=== PATIENT | male | born 1945 | race Caucasian/White ===

== ENCOUNTER 2019-08-09 11:43 | Outpatient (CLI) | payer MEDICARE ==
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
== END 2019-08-09 11:44 | disposition home or self-care (01) ==
LOC: DI.S 11:43
PROVIDERS: ATTEND Family Medicine
DX: M25.512 Pain in left shoulder (principal); Z95.810 Presence of automatic (implantable) cardiac defibrillator

== ENCOUNTER 2020-11-07 09:09 | Outpatient (CLI) | payer MEDICARE, OTHER ==
[2020-11-07 15:42] LABS: BASOPHILS # (AUTO) 0.1 10^3/uL (0.0-0.1); BASOPHILS % (AUTO) 1.1 %; EOSINOPHILS # (AUTO) 0.5 10^3/uL (0.0-0.7); EOSINOPHILS % (AUTO) 7.4 %; HGB - HEMOGLOBIN 14.7 g/dL (14.0-18.0); LYMPHOCYTES # (AUTO) 1.8 10^3/uL (1.5-3.5); MEAN CORPUSCULAR HEMOGLOBIN 31.2 pg (27.0-31.0); MEAN CORPUSCULAR HGB CONC 32.7 g/dL (32.0-36.0); MEAN CORPUSCULAR VOLUME 95.5 fL (80.0-94.0); MEAN PLATELET VOLUME 9.8 fL (7.4-11.4); MONOCYTES # (AUTO) 0.5 10^3/uL (0.0-1.0); MONOCYTES % (AUTO) 7.2 %; NEUTROPHILS # (AUTO) 3.7 10^3/uL (1.5-6.6); NEUTROPHILS % (AUTO) 57.1 %; PLT - PLATELET COUNT 247 10^3/uL (130-450); RED BLOOD COUNT 4.71 10^6/uL (4.70-6.10); WHITE BLOOD COUNT 6.5 x10^3/uL (4.8-10.8)
[2020-11-07 16:04] LABS: ALBUMIN 4.3 g/dL (3.2-5.5); ALBUMIN/GLOBULIN RATIO 1.3 (1.0-2.2); ALKALINE PHOSPHATASE 69 IU/L (42-121); ALT ALANINE AMINOTRANSFERASE 20 IU/L (10-60); AST ASPARTATE AMINOTRANSFERASE 24 IU/L (10-42); BILIRUBIN,TOTAL 0.7 mg/dL (0.2-1.0); BUN - BLOOD UREA NITROGEN 16 mg/dL (6-20); CALCIUM 9.5 mg/dL (8.5-10.3); CARBON DIOXIDE - CO2 25 mmol/L (21-32); CHLORIDE 104 mmol/L (101-111); CHOL/HDL RATIO 5.7 (<5.0); CHOLESTEROL 228 mg/dL; CREATININE 0.9 mg/dL (0.6-1.2); GLUCOSE 96 mg/dL (70-100); HDL CHOLESTEROL 40 mg/dL; LDL CHOLESTEROL,CALCULATED 150 mg/dL; LDL/HDL RATIO 3.8 (<3.6); TOTAL PROTEIN 7.6 g/dL (6.7-8.2); VLDL CHOLESTEROL 38 mg/dL
== END 2020-11-07 09:10 | disposition home or self-care (01) ==
LOC: LAB.S 09:09
PROVIDERS: ATTEND Internal Medicine
DX: I10 Essential (primary) hypertension (principal)
CPT/HCPCS: 36415; 80053; 80061; 83721; 85025

== ENCOUNTER 2021-02-22 08:00 | Outpatient (CLI) | payer MEDICARE, OTHER ==
[2021-02-22 21:36] LABS: FECAL OCCULT BLOOD (FIT) NEGATIVE (NEGATIVE)
== END 2021-02-22 23:59 | disposition home or self-care (01) ==
LOC: LAB.S 08:00
PROVIDERS: ATTEND Internal Medicine
DX: Z12.11 Encounter for screening for malignant neoplasm of colon (principal)
CPT/HCPCS: 82274

== ENCOUNTER 2021-03-20 10:07 | Outpatient (CLI) | payer MEDICARE, OTHER ==
[2021-03-20 14:38] LABS: BASOPHILS # (AUTO) 0.1 10^3/uL (0.0-0.1); BASOPHILS % (AUTO) 1.3 %; EOSINOPHILS # (AUTO) 0.3 10^3/uL (0.0-0.7); EOSINOPHILS % (AUTO) 5.6 %; HCT - HEMATOCRIT 42.1 % (42.0-52.0); HGB - HEMOGLOBIN 14.2 g/dL (14.0-18.0); LYMPHOCYTES # (AUTO) 1.5 10^3/uL (1.5-3.5); LYMPHOCYTES % (AUTO) 26.8 %; MEAN CORPUSCULAR HEMOGLOBIN 32.3 pg (27.0-31.0); MEAN CORPUSCULAR HGB CONC 33.7 g/dL (32.0-36.0); MEAN CORPUSCULAR VOLUME 95.9 fL (80.0-94.0); MEAN PLATELET VOLUME 10.3 fL (7.4-11.4); MONOCYTES # (AUTO) 0.5 10^3/uL (0.0-1.0); MONOCYTES % (AUTO) 8.2 %; NEUTROPHILS # (AUTO) 3.2 10^3/uL (1.5-6.6); NEUTROPHILS % (AUTO) 57.9 %; PLT - PLATELET COUNT 235 10^3/uL (130-450); RED BLOOD COUNT 4.39 10^6/uL (4.70-6.10); RED CELL DISTRIBUTION WIDTH 12.2 % (12.0-15.0); WHITE BLOOD COUNT 5.5 x10^3/uL (4.8-10.8)
[2021-03-20 15:25] LABS: ALBUMIN/GLOBULIN RATIO 1.3 (1.0-2.2); ALKALINE PHOSPHATASE 60 IU/L (42-121); ALT ALANINE AMINOTRANSFERASE 21 IU/L (10-60); AST ASPARTATE AMINOTRANSFERASE 25 IU/L (10-42); BILIRUBIN,TOTAL 0.8 mg/dL (0.2-1.0); BUN - BLOOD UREA NITROGEN 16 mg/dL (6-20); CALCIUM 8.8 mg/dL (8.5-10.3); CARBON DIOXIDE - CO2 25 mmol/L (21-32); CHLORIDE 103 mmol/L (101-111); CHOL/HDL RATIO 5.2 (<5.0); CHOLESTEROL 204 mg/dL; CREATININE 0.9 mg/dL (0.6-1.2); GFR - MDRD 82 (>89); GLUCOSE 124 mg/dL (70-100); HDL CHOLESTEROL 39 mg/dL; LDL CHOLESTEROL,CALCULATED 128 mg/dL; LDL/HDL RATIO 3.3 (<3.6); POTASSIUM 3.8 mmol/L (3.5-5.0); SODIUM 135 mmol/L (135-145); TRIGLYCERIDES 184 mg/dL; VLDL CHOLESTEROL 37 mg/dL
== END 2021-03-20 10:08 | disposition home or self-care (01) ==
LOC: LAB.S 10:07
PROVIDERS: ATTEND Internal Medicine
DX: I10 Essential (primary) hypertension (principal); Z12.5 Encounter for screening for malignant neoplasm of prostate
CPT/HCPCS: 36415; 80053; 80061; 85025; G0103; 83721; 84153

== ENCOUNTER 2021-04-08 08:38 | Outpatient (CLI) | payer MEDICARE, OTHER ==
--- NOTE | 2021-04-08 10:07 | XRAY Report ---
PROCEDURE: Chest 2 View X-Ray INDICATIONS: SHORTNESS OF BREATH, DIAPHRAGMATIC DISORDER TECHNIQUE: 2 view(s) of the chest. COMPARISON: None. FINDINGS: Surgical changes and devices: Left chest wall pacemaker is seen. Post surgical changes also seen in s houlder joint. Lungs and pleura: No pleural effusions or pneumothorax. Lungs are clear. Mediastinum: Mediastinal contours are normal. Heart size is normal. Bones and chest wall: No suspicious bony abnormalities. Soft tissues appear unremarkable. IMPRESSION: No acute cardiopulmonary pathology. Reviewed by: Star Newman MD on 04/08/2021 10:05 AM PDT Approved by: Star Newman MD on 04/08/2021 10:05 AM PDT Station ID: [id number]
== END 2021-04-08 08:39 | disposition home or self-care (01) ==
LOC: DI.S 08:38
PROVIDERS: ATTEND Internal Medicine
DX: R06.02 Shortness of breath (principal); J98.6 Disorders of diaphragm

== ENCOUNTER 2021-08-27 11:49 | Outpatient (CLI) | payer MEDICARE, OTHER ==
--- NOTE | 2021-08-27 12:19 | XRAY Report ---
PROCEDURE: Chest 2 View X-Ray INDICATIONS: SHORTNESS OF BREATH,DIAPHRAGMATIC DISORDER TECHNIQUE: 2 view(s) of the chest. COMPARISON: April 08, 2021. FINDINGS: SUPPORT DEVICES: Redemonstrated left cardiac device. Surgical anchor projects over the right humeral head. LUNGS/PLEURA: Blunting of the left costophrenic sulcus, likely reflecting atelectasis. The remaining lung zones well aerated. No pneumothorax or large pleural effusion. MEDIASTINUM: The cardiomediastinal silhouette is within normal limits. BONES/SOFT TISSUES: No acute osseous abnormality. Persistent elevation of the left diaphragm with und erlying bowel gas. IMPRESSION: 1.No acute cardiopulmonary abnormality. Reviewed by: Kyle Rivera MD on 08/27/2021 12:18 PM [facility] Approved by: Kyle Rivera MD on 08/27/2021 12:18 PM [facility] Station ID: [id number]
== END 2021-08-27 11:50 | disposition home or self-care (01) ==
LOC: DI.S 11:49
PROVIDERS: ATTEND Internal Medicine
DX: R06.02 Shortness of breath (principal); J98.6 Disorders of diaphragm

== ENCOUNTER 2021-12-06 07:09 | Outpatient (CLI) | payer MEDICARE, OTHER ==
--- NOTE | 2021-12-06 08:27 | XRAY Report ---
PROCEDURE: Chest 2 View X-Ray INDICATIONS: DIAPHRAGM DYSFUNCTION, STATUS POST LUNG SURGERY, FOLLOW UP TECHNIQUE: 2 view(s) of the chest. COMPARISON: August 27, 2021. FINDINGS: SUPPORT DEVICES: Left cardiac device is again seen. Surgical anchors project over the right humeral h ead LUNGS/PLEURA: Blunting of the left costophrenic sulcus, compatible with small pleural effusion/atelec tasis. 4 mm nodular density in the right lower lung zone, which may reflect a granuloma. MEDIASTINUM: The cardiomediastinal silhouette is within normal limits. BONES/SOFT TISSUES: No acute abnormality. Eventration of the right diaphragm. IMPRESSION: 1.Small left pleural effusion with adjacent atelectasis. Reviewed by: Kyle Rivera MD on 12/06/2021 8:26 AM PDT Approved by: Kyle Rivera MD on 12/06/2021 8:26 AM PDT Station ID: [id number]
== END 2021-12-06 07:10 | disposition home or self-care (01) ==
LOC: DI.S 07:09
DX: Z09 Encounter for follow-up examination after completed treatment for conditions other than malignant neoplasm (principal); Z87.09 Personal history of other diseases of the respiratory system; J90 Pleural effusion, not elsewhere classified; J98.11 Atelectasis

== ENCOUNTER 2022-05-31 08:57 | Outpatient (CLI) | payer MEDICARE, OTHER ==
[2022-05-31 09:37] LABS: CALCIUM 9.7 mg/dL (8.5-10.3); CREATININE 1.1 mg/dL (0.6-1.2); POTASSIUM 3.9 mmol/L (3.5-5.0)
--- NOTE | 2022-05-31 10:25 | CT Report ---
PROCEDURE: CHEST W INDICATIONS: PLEURAL EFFUSION CONTRAST: IV CONTRAST: Optiray 320 ml: 100 PO CONTRAST: *NO PO CONTRAST TECHNIQUE: After the administration of intravenous contrast, 1 mm axial images were acquired from the pulmonary apices through the posterior costophrenic angles. Axial 5 mm soft tissue kernel reconstructions were performed as well as 8 mm axial MIP and coronal and sagittal 5 mm reformations. For radiation dose reduction, the following was used: automated exposure control, adjustment of mA and/or kV according to patient size. COMPARISON: Chest radiographs 12/06/2021. CT abdomen/pelvis 03/25/2022. FINDINGS: Image quality: Excellent. Lungs and pleura: Postsurgical changes are again seen along the left hemidiaphragm. The previously s een left-sided pleural effusion has resolved. A few calcified granulomas are seen in both lungs. No a cute air space opacities. No pneumothorax. Central and peripheral airways are patent and normal in caliber. Mediastinum: Heart size is normal. No pericardial effusion. No mediastinal or hilar adenopathy by size criteria. Thoracic aorta and central pulmonary arteries are normal in size. Esophagus is ceci l in caliber. Small hiatal hernia. Bones and chest wall: A cardiac pacemaker is seen with pulse generator in the left chest. No suspici ous bony lesions. Chronic healed right clavicular fracture. Postsurgical changes are seen in the pos terior left lower rib. Healed right sided posterior rib fractures are present. No vertebral body comp ression fractures. No axillary or supraclavicular adenopathy by size criteria. The thyroid is ceci l in size. Abdomen: Multiple stable low-density lesions are again seen throughout the liver, most likely cysts. Simple appearing cysts are seen in the kidneys. IMPRESSION: Previously seen left pleural effusion has resolved. Stable postsurgical changes of the left hemidiaph ragm. Reviewed by: Parish Mccain MD on 05/31/2022 9:24 AM [facility] Approved by: Parish Mccain MD on 05/31/2022 9:24 AM [facility] Station ID: [id number]
== END 2022-05-31 08:58 | disposition home or self-care (01) ==
LOC: LAB 08:57
PROVIDERS: ATTEND Nurse Practitioner Family
DX: J90 Pleural effusion, not elsewhere classified (principal)
CPT/HCPCS: 36415; 71260; 80048; Q9967

== ENCOUNTER 2023-06-09 10:40 | Outpatient (CLI) | payer MEDICARE, OTHER ==
[2023-06-09 14:25] LABS: BASOPHILS # (AUTO) 0.1 10^3/uL (0.0-0.1); BASOPHILS % (AUTO) 0.9 %; EOSINOPHILS # (AUTO) 0.3 10^3/uL (0.0-0.7); EOSINOPHILS % (AUTO) 3.9 %; HCT - HEMATOCRIT 42.2 % (42.0-52.0); HGB - HEMOGLOBIN 13.8 g/dL (14.0-18.0); LYMPHOCYTES # (AUTO) 1.5 10^3/uL (1.5-3.5); LYMPHOCYTES % (AUTO) 22.2 %; MEAN CORPUSCULAR HEMOGLOBIN 31.3 pg (27.0-31.0); MEAN CORPUSCULAR HGB CONC 32.7 g/dL (32.0-36.0); MEAN CORPUSCULAR VOLUME 95.7 fL (80.0-94.0); MEAN PLATELET VOLUME 9.8 fL (7.4-11.4); MONOCYTES # (AUTO) 0.5 10^3/uL (0.0-1.0); MONOCYTES % (AUTO) 6.9 %; NEUTROPHILS # (AUTO) 4.4 10^3/uL (1.5-6.6); NEUTROPHILS % (AUTO) 65.9 %; PLT - PLATELET COUNT 249 10^3/uL (130-450); RED BLOOD COUNT 4.41 10^6/uL (4.70-6.10); RED CELL DISTRIBUTION WIDTH 12.2 % (12.0-15.0); WHITE BLOOD COUNT 6.6 x10^3/uL (4.8-10.8)
[2023-06-09 14:45] LABS: ALBUMIN 4.1 g/dL (3.2-5.5); ALBUMIN/GLOBULIN RATIO 1.5 (1.0-2.2); BILIRUBIN,TOTAL 0.6 mg/dL (0.2-1.0); CALCIUM 9.5 mg/dL (8.5-10.3); TOTAL PROTEIN 6.9 g/dL (6.4-8.9)
[2023-06-09 14:57] LABS: THYROID STIMULATING HORMONE 2.46 uIU/mL (0.34-5.60)
== END 2023-06-09 10:41 | disposition home or self-care (01) ==
LOC: LAB.S 10:40
PROVIDERS: ATTEND Nurse Practitioner Acute Care
DX: Z12.5 Encounter for screening for malignant neoplasm of prostate (principal); Z13.228 Encounter for screening for other metabolic disorders; Z13.29 Encounter for screening for other suspected endocrine disorder; Z13.0 Encounter for screening for diseases of the blood and blood-forming organs and certain disorders involving the immune mechanism
CPT/HCPCS: 36415; 80053; 84443; 85025; G0103; 84153

== ENCOUNTER 2024-04-29 08:03 | Outpatient (CLI) | payer MEDICARE, OTHER ==
[2024-04-29 16:43] LABS: CHOL/HDL RATIO 4.3 (<5.0); CHOLESTEROL 189 mg/dL; HDL CHOLESTEROL 44 mg/dL; LDL CHOLESTEROL,CALCULATED 125 mg/dL; LDL/HDL RATIO 2.8 (<3.6); TRIGLYCERIDES 100 mg/dL; VLDL CHOLESTEROL 20 mg/dL
== END 2024-04-29 08:04 | disposition home or self-care (01) ==
LOC: LAB.S 08:03
PROVIDERS: ATTEND Nurse Practitioner Acute Care
DX: Z13.220 Encounter for screening for lipoid disorders (principal)
CPT/HCPCS: 36415; 80061; 83721